=== PATIENT | male | born 1955 | race Native Hawaiian/Other Pacific Islander ===

== ENCOUNTER 2016-10-20 23:44 | Inpatient (IN) | payer BC, OTHER ==
[~2016-10-20] VITALS: Ht 172.7 cm; Wt 104.1 kg
[~2016-10-20 23:44] MED LIST: ADVA100A NEB; AMLO2.5T PO; ASPI81TA11 PO; CHOL50006 PO; LEVA0.3113 NEB; LEVO.05 PO; LEXA10TA PO; PROB500 PO; ROSU5 PO; TELM1TAB56 PO
[2016-10-20 23:51] VITALS: BP 156/90; PULSE 144; RESP 20
[2016-10-21] VITALS (18 sets, daily range): BP systolic 129–178; BP diastolic 60–96; PULSE 48–137; RESP 13–22; TEMP 98.2–98.5; O2SAT 95–99
[2016-10-21] MEDS ORDERED: MULT1CHW70 (00:13)
[2016-10-21] MEDS ORDERED: AMLO2.5T PO (00:13)
[2016-10-21] MEDS ORDERED: VITATAB29 (00:13)
[2016-10-21] MEDS ORDERED: ASPI81CH CHEW (00:13)
[2016-10-21] MEDS ORDERED: LEXA10TA PO (00:13)
[2016-10-21] MEDS ORDERED: CLAR10CA3 PO (00:13)
[2016-10-21] MEDS ORDERED: [UNRECOGNIZED DRUG - CODE] (00:13)
[2016-10-21] MEDS ORDERED: MONT10TA2 PO (00:13)
[2016-10-21] MEDS ORDERED: ROSU5 PO (00:13)
[2016-10-21] MEDS ORDERED: TELM1TAB56 PO (00:13)
--- NOTE | 2016-10-21 00:13 | PD ---
HPI Chief Complaint: Chest Pain Time Seen by Provider: 23:56 Travel History International Travel<30 days: No Contact w/Intl Traveler<30days: No Traveled to known affect area: No History of Present Illness HPI The patient is a 61-year-old male that has a history of intermittent atrial fibrillation. The last time he had atrial fibrillation was last January. He states he has been in atrial fibrillation for about an hour. It started about 11 PM this evening. The patient took an extra 325 mg aspirin when he felt the atrial fibrillation. He has been taking the rest of his medications correctly. He denies any chest pain or shortness of breath. 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 PFSH Past Medical History Asthma: Yes Atrial Fibrillation: Yes Cardiovascular Problems: Yes Diminished Hearing: No Hiatal Hernia: Yes Hypertension: Yes Musculoskeletal: Yes (LOWER BACK PAIN RECEIVES STEROIDAL SHOTS ) Reproductive: Yes (CPAP AT HOME AT NIGHT ) Respiratory: Yes (CPAP AT HOME AT NIGHT) Sleep Apnea: Yes Past Surgical History Other Surgery: Yes (RECTAL FISSURE) Social History Alcohol Use: No Tobacco Use: No Substance Use: No Allergies-Medications (Allergen,Severity, Reaction): Coded Allergies: Dairy (Verified Allergy, Severe, GERD, STOMACH PROBLEMS, 10/21/16) Naprosyn (Verified Allergy, Severe, STOMACH PROBLEMS, 10/21/16) Uncoded Allergies: CITRUS (Allergy, Severe, FOOD ALLERGY- ITCHING, 06/26/12) Reported Meds & Prescriptions Reported Meds & Active Scripts Active Reported Breo Ellipta Inh (Fluticasone/Vilanterol) 100-25 Mcg/Act Inh 1 Puff INH DAILY Use daily at the same time. Coenzyme Q10 1 Pow Pow Cap PO Ventolin Hfa 18 GM Inh (Albuterol Sulfate) 90 Mcg/Act Aer 1 Puff INH Q4H PRN [allergies shot] SQ WEEKLY Doxil (Doxorubicin HCl Liposome) 2 Mg/Ml Inj Multivitamin Adult (Multiple Vitamins W/ Minerals) 1 Chw Chw Lexapro (Escitalopram Oxalate) 10 Mg Tab 10 Mg PO DAILY Amlodipine (Amlodipine Besylate) 2.5 Mg Tab 2.5 Mg PO DAILY Micardis (Telmisartan) 80 Mg Tab 80 Mg PO DAILY Claritin (Loratadine) 10 Mg Cap 10 Mg PO DAILY Crestor (Rosuvastatin Calcium) 5 Mg Tab 2.5 Mg PO DAILY Vitamin A & D 16251-575 Unit (Vitamins A & D) 1 Tab Tab 1,000 Singulair (Montelukast Sodium) 10 Mg Tab 10 Mg PO HS Aspirin 81 Mg Chew 81 Mg CHEW DAILY Review of Systems Except as stated in HPI: all other systems reviewed are Neg Physical Exam Narrative GENERAL: The patient is alert, oriented 3 in no respiratory distress. His vital signs show pulse rate of 144, respirations 20 and blood pressure 156/90 but otherwise normal. SKIN: Focused skin assessment warm/dry. HEAD: Atraumatic. Normocephalic. EYES: Pupils equal and round. No scleral icterus. No injection or drainage. ENT: No nasal bleeding or discharge. Mucous membranes pink and moist. NECK: Trachea midline. No JVD. CARDIOVASCULAR: Atrial fibrillation with rapid ventricular response. No murmur appreciated. RESPIRATORY: No accessory muscle use. Clear to auscultation. Breath sounds equal bilaterally. GASTROINTESTINAL: Abdomen soft, non-tender, nondistended. Hepatic and splenic margins not palpable. MUSCULOSKELETAL: No obvious deformities. No clubbing. No cyanosis. No edema. NEUROLOGICAL: Awake and alert. No obvious cranial nerve deficits. Motor grossly within normal limits. Normal speech. PSYCHIATRIC: Appropriate mood and affect; insight and judgment normal. Data Data Last Documented VS Vital Signs Date Time Temp Pulse Resp B/P Pulse Ox O2 Delivery O2 Flow Rate FiO2 10/21/16 01:32 128 18 154/87 99 Room Air Orders Ecg Monitoring (10/21/16 00:02) Blood Pressure (10/21/16 00:02) Iv Access Insert/Monitor (10/21/16 00:02) Oximetry (10/21/16 00:02) Vital Signs (10/21/16 00:02) Diltiazem Inj (Cardizem Inj) (10/21/16 00:15) Sodium Chloride 0.9% Flush (Ns Flush) (10/21/16 00:15) Diltiazem Inj (Cardizem Inj) (10/21/16 00:15) Electrocardiogram (10/21/16 00:07) B-Type Natriuretic Peptide (10/21/16 00:07) Complete Blood Count With Diff (10/21/16 00:07) Comprehensive Metabolic Panel (10/21/16 00:07) Magnesium (Mg) (10/21/16 00:07) Prothrombin Time / Inr (Pt) (10/21/16 00:07) Act Partial Throm Time (Ptt) (10/21/16 00:07) Troponin I (10/21/16 00:07) Oxygen Administration (10/21/16 00:07) Sodium Chloride 0.9% Flush (Ns Flush) (10/21/16 00:15) Urinalysis - C+S If Indicated (10/21/16 01:02) Sodium Chlor 0.9% 1000 Ml Inj (Ns 1000 M (10/21/16 01:45) Diltiazem Inj (Cardizem Inj) (10/21/16 01:45) Labs Laboratory Tests Test 10/21/16 10/21/16 00:00 01:07 White Blood Count 10.3 TH/MM3 Red Blood Count 5.50 MIL/MM3 Hemoglobin 15.0 GM/DL Hematocrit 45.9 % Mean Corpuscular Volume 83.5 FL Mean Corpuscular Hemoglobin 27.4 PG Mean Corpuscular Hemoglobin 32.8 % Concent Red Cell Distribution Width 13.1 % Platelet Count 333 TH/MM3 Mean Platelet Volume 9.6 FL Neutrophils (%) (Auto) 48.9 % Lymphocytes (%) (Auto) 38.4 % Monocytes (%) (Auto) 9.2 % Eosinophils (%) (Auto) 2.7 % Basophils (%) (Auto) 0.8 % Neutrophils # (Auto) 5.1 TH/MM3 Lymphocytes # (Auto) 3.9 TH/MM3 Monocytes # (Auto) 0.9 TH/MM3 Eosinophils # (Auto) 0.3 TH/MM3 Basophils # (Auto) 0.1 TH/MM3 CBC Comment DIFF FINAL Differential Comment Prothrombin Time 11.4 SEC Prothromb Time International 1.0 RATIO Ratio Activated Partial 27.8 SEC Thromboplast Time Sodium Level 142 MEQ/L Potassium Level 4.0 MEQ/L Chloride Level 105 MEQ/L Carbon Dioxide Level 27.3 MEQ/L Anion Gap 10 MEQ/L Blood Urea Nitrogen 22 MG/DL Creatinine 1.10 MG/DL Estimat Glomerular Filtration 68 ML/MIN Rate Random Glucose 131 MG/DL Calcium Level 9.3 MG/DL Magnesium Level 1.8 MG/DL Total Bilirubin 0.3 MG/DL Aspartate Amino Transf 23 U/L (AST/SGOT) Alanine Aminotransferase 48 U/L (ALT/SGPT) Alkaline Phosphatase 93 U/L Troponin I LESS THAN 0.02 NG/ML B-Type Natriuretic Peptide 26 PG/ML Total Protein 8.0 GM/DL Albumin 4.0 GM/DL Urine Color STRAW Urine Turbidity CLEAR Urine pH 5.5 Urine Specific [place] 1.003 Urine Protein NEG mg/dL Urine Glucose (UA) NEG mg/dL Urine Ketones NEG mg/dL Urine Occult Blood NEG Urine Nitrite NEG Urine Bilirubin NEG Urine Leukocyte Esterase NEG Urine RBC 0-2 /hpf Urine WBC 0-2 /hpf Urine Squamous Epithelial 0-5 /hpf Cells Urine Bacteria NONE /hpf Microscopic Urinalysis Comment CULT NOT INDICATED MDM Medical Decision Making Medical Screen Exam Complete: Yes Emergency Medical Condition: Yes Medical Record Reviewed: Yes Differential Diagnosis Atrial fibrillation with rapid ventricular response, electrolyte disorder, acute coronary syndrome, renal insufficiency, dehydration Narrative Course The patient has atrial fibrillation with rapid ventricular response. He was given 20 of Cardizem and put on a Cardizem drip. It is now 0150 and the patient is on a 15 mg per hour drip and has been given a total of 30 Cardizem bolus. He still has not converted into sinus rhythm. I discussed the patient with Dr. Hughes, the patient will be admitted to her. Physician Communication Physician Communication I discussed the patient with Dr. Hughes. Diagnosis Primary Impression: Atrial fibrillation with rapid ventricular response Admitting Information Admitting Physician Requests: Admit Reyes Mcdonald MD October 21, 2016 00:13
[2016-10-21] MEDS ORDERED: DILTIAZEM INJ 125 MG in SODIUM CHLORIDE 0.9% INJ 100 ML IV SCH (00:15)
[2016-10-21] MEDS ORDERED: SODIUM CHLORIDE 0.9% FLUSH 10 ML FLUSH IVF PRN ×2 (00:15)
[2016-10-21] MEDS ORDERED: DILTIAZEM HCL 25 MG/5 ML VIAL IV ONE ×2 (00:15→01:45)
[2016-10-21 00:26] LABS: AUTOMATED NEUTROPHIL # 5.1 TH/MM3 (1.8-7.7); BASOPHIL # 0.1 TH/MM3 (0-0.2); BASOPHIL % 0.8 % (0.0-2.0); EOSINOPHIL # 0.3 TH/MM3 (0-0.4); EOSINOPHIL % 2.7 % (0.0-4.0); HEMATOCRIT 45.9 % (39.0-51.0); LYMPH % 38.4 % (9.0-44.0); LYMPHOCYTE # 3.9 TH/MM3 (1.0-4.8); MEAN CELL VOLUME 83.5 FL (80.0-100.0); MEAN CORPUSCULAR HEMOGLOBIN 27.4 PG (27.0-34.0); MEAN CORPUSCULAR HGB CONC 32.8 % (32.0-36.0); MONO % 9.2 % (0.0-8.0); NEUT % 48.9 % (16.0-70.0); PLATELET COUNT 333 TH/MM3 (150-450); RED CELL DISTRIBUTION WIDTH 13.1 % (11.6-17.2); WHITE BLOOD COUNT 10.3 TH/MM3 (4.0-11.0)
[2016-10-21 00:30] LABS: HEMO FLAGS DIFF FINAL
[2016-10-21 00:34] LABS: CHLORIDE 105 MEQ/L (98-107); SODIUM (NA) 142 MEQ/L (136-145)
[2016-10-21 00:37] LABS: ANION GAP 10 MEQ/L (5-15); BICARBONATE 27.3 MEQ/L (21.0-32.0); MAGNESIUM 1.8 MG/DL (1.5-2.5)
[2016-10-21 00:38] LABS: BLOOD UREA NITROGEN 22 MG/DL (7-18)
[2016-10-21 00:40] LABS: APTT (PATIENT) 27.8 SEC (24.3-30.1); PROTHROMBIN TIME - PATIENT 11.4 SEC (9.8-11.6)
[2016-10-21 00:41] LABS: ALT (GPT) 48 U/L (12-78); AST (GOT) 23 U/L (15-37); GLOMERULAR FILTRATION RATE 68 ML/MIN (>89)
[2016-10-21 00:42] LABS: TOTAL BILIRUBIN ADULT 0.3 MG/DL (0.2-1.0)
[2016-10-21 00:43] LABS: ALKALINE PHOSPHATASE 93 U/L (45-117)
[2016-10-21 01:18] LABS: BLOOD, URINE NEG (NEG); GLUCOSE,URINE NEG (NEG); KETONE, URINE NEG (NEG); NITRITE,URINE NEG (NEG); PH, URINE 5.5 (5.0-8.5)
[2016-10-21] MEDS ORDERED: VENTAER INH (01:19)
[2016-10-21] MEDS ORDERED: [UNRECOGNIZED DRUG - REMARK] SQ (01:19)
[2016-10-21 01:21] LABS: URINE COLOR STRAW (YELLW/STRAW)
[2016-10-21] MEDS ORDERED: COENPOW21 PO (01:21)
[2016-10-21 01:23] LABS: COMMENT (UR) CULT NOT INDICATED; CULTURE IF INDICATED CULT NOT INDICATED; RBC, URINE 0-2 /hpf (0-3); SQUAMOUS EPITHELIAL CELL URINE 0-5 /hpf (0-5); WBC, URINE 0-2 /hpf (0-5)
[2016-10-21] MEDS ORDERED: FLUT1INH INH (01:23)
[2016-10-21] MEDS ORDERED: SODIUM CHLOR 0.9% 1000 ML INJ 1,000 ML IV SCH (01:45)
[2016-10-21] MEDS ORDERED: NALOXONE HCL 0.4 MG/ML AMP IV PRN (02:00)
[2016-10-21] MEDS ORDERED: SODIUM CHLORIDE 0.9% FLUSH 10 ML FLUSH IV FLUSH PRN (02:00)
[2016-10-21] MEDS ORDERED: ALUMINUM/MAGNESIUM/SIMETH 30 ML CUP PO ONE (02:30)
[2016-10-21] MEDS ORDERED: PANTOPRAZOLE SODIUM 40 MG VIAL IVP ONE (02:30)
[2016-10-21] MEDS ORDERED: FAMOTIDINE 20 MG/2 ML VIAL IV PUSH ONE (02:30)
[2016-10-21] MEDS ORDERED: SODIUM CHLORIDE 0.9% FLUSH 10 ML FLUSH IV FLUSH SCH (09:00)
[2016-10-21] MEDS ORDERED: ALBUTEROL SULFATE 90 MCG/ACT HFA 8 GM INHALER INH PRN (09:15)
[2016-10-21] MEDS ORDERED: CALCIUM CARBONATE 500 MG CHEWABLE TAB CHEW PRN (09:15)
[2016-10-21] MEDS ORDERED: DOCUSATE SODIUM 50 MG/SENNA 8.6 MG TAB PO PRN (09:15)
[2016-10-21] MEDS ORDERED: ONDANSETRON HCL 4 MG/2 ML VIAL IV PRN (09:15)
[2016-10-21] MEDS ORDERED: ACETAMINOPHEN 325 MG TAB PO PRN (09:15)
[2016-10-21] MEDS ORDERED: LEVO50TA4 PO (09:32)
[2016-10-21] MEDS ORDERED: CARD240C6 PO (11:00)
--- NOTE | 2016-10-21 11:00 | HHI.DCPOC ---
Discharge Care Plan Diagnosis: (1) Atrial fibrillation with rapid ventricular response Your Health Problems Are: Difficulty with ADL Exercise Tolerance Goals to Promote Your Health * To prevent worsening of your condition and complications * To maintain your health at the optimal level Directions to Meet Your Goals Take your medications as prescribed Follow your dietary instruction Follow activity as directed Keep your appointments as scheduled Take your immunizations and boosters as scheduled If your symptoms worsen call your PCP, if no PCP go to Urgent Care Center or Emergency Room Smoking is Dangerous to Your Health. Avoid second hand smoke Call the 24-hour hour crisis hotline for domestic abuse at Julio Gross MD October 21, 2016 11:00
--- NOTE | 2016-10-21 11:25 | HHI.HP ---
cc: Mariam Sutherland MD [facility] Service [facility] Primary Care Physician Mariam Sutherland MD Admission Diagnosis atrial fibrillation with rapid ventricular response Diagnoses: (1) Atrial fibrillation with rapid ventricular response Diagnosis: Principal (2) Elevated troponin Diagnosis: Principal (3) HTN (hypertension) Diagnosis: Principal Chief Complaint: heart racing, tingling Travel History International Travel<30 Days: No Contact w/Intl Traveler <30 Da: No Traveled to Known Affected Are: No History of Present Illness Dr. Mcdonald is a 61-year-old male with history of atrial fibrillation, hypertension, sleep apnea presents with complaint of his heart racing and tingling. The patient states that yesterday he had a lot of burping and also had tea in the evening which he does not usually do. He states he took his GERD medication late. He states he was lying down and then started experiencing tingling. He states his blood pressure felt elevated and his heart was racing. States he took a baby aspirin in the morning and then took full aspirin along with his Micardis and Amlodipine. He states [facility] came to the house and his blood pressure was 180/90. He denies any diaphoresis , chest pain, shortness of breath. He states he's also had a lot of back pain for the past 3-4 days, but he has chronic back pain. Gets leg swelling from amlodipine. He states Dr. Carrion put him on spironolactone for 4-5 days, but he had too many adverse effects. Patient states he had A. fib in 2013 when his C Pap wasn't working properly. Patient has had multiple stress tests. His last had one was in May 2015. He states he had heart catheterization in 2005 which was clean. He does state he gets false positive ST changes every time he has a stress test. 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 Review of Systems Except as stated in HPI: all other systems reviewed are Neg Past Family Social History Past Medical History Atrial fibrillation Hypertension Sleep apnea, uses CPAP chronic back pain Past Surgical History None Reported Medications Levothyroxine (Levothyroxine Sodium) 50 Mcg Tab 50 Mcg PO DAILY Breo Ellipta Inh (Fluticasone/Vilanterol) 100-25 Mcg/Act Inh 1 Puff INH DAILY Use daily at the same time. Coenzyme Q10 1 Pow Pow Cap PO Ventolin Hfa 18 GM Inh (Albuterol Sulfate) 90 Mcg/Act Aer 1 Puff INH Q4H PRN [allergies shot] SQ WEEKLY Multivitamin Adult (Multiple Vitamins W/ Minerals) 1 Chw Chw Lexapro (Escitalopram Oxalate) 10 Mg Tab 10 Mg PO DAILY Amlodipine (Amlodipine Besylate) 2.5 Mg Tab 2.5 Mg PO DAILY Micardis (Telmisartan) 80 Mg Tab 80 Mg PO DAILY Claritin (Loratadine) 10 Mg Cap 10 Mg PO DAILY Crestor (Rosuvastatin Calcium) 5 Mg Tab 2.5 Mg PO DAILY Vitamin A & D 44652-117 Unit (Vitamins A & D) 1 Tab Tab 1,000 Singulair (Montelukast Sodium) 10 Mg Tab 10 Mg PO HS Aspirin 81 Mg Chew 81 Mg CHEW DAILY Allergies: Coded Allergies: Dairy (Verified Allergy, Severe, GERD, STOMACH PROBLEMS, 10/21/16) Naprosyn (Verified Allergy, Severe, STOMACH PROBLEMS, 10/21/16) Uncoded Allergies: CITRUS (Allergy, Severe, FOOD ALLERGY- ITCHING, 06/26/12) Family History Father: [place] in 2005, diabetes, hypertension. Mother: Hypertension Social History Denies any history of tobacco use, alcohol use, or illicit drug use. Physical Exam Vital Signs Vital Signs Date Time Temp Pulse Resp B/P Pulse Ox O2 Delivery O2 Flow Rate FiO2 10/21/16 06:00 68 10/21/16 04:00 98.2 90 15 132/75 97 10/21/16 04:00 90 10/21/16 03:37 103 18 143/71 97 Room Air 10/21/16 03:01 Room Air 10/21/16 02:59 120 18 178/77 97 Room Air 10/21/16 02:33 101 18 163/67 96 Room Air 10/21/16 01:54 98 19 140/73 98 Room Air 10/21/16 01:32 128 18 154/87 99 Room Air 10/21/16 01:11 137 18 149/82 98 Room Air 10/21/16 00:47 109 19 157/81 95 Room Air 10/21/16 00:36 Room Air 10/21/16 00:33 96 18 145/75 98 Room Air 10/21/16 00:29 79 18 160/96 96 Room Air 10/20/16 23:51 144 20 156/90 Physical Exam GENERAL: This is a pleasant well-nourished, well-developed patient, in no apparent distress. SKIN: No rashes, ecchymoses or lesions. Warm and dry. HEAD: Atraumatic. Normocephalic. EYES: No scleral icterus. No injection or drainage. NECK: Trachea midline. CARDIOVASCULAR: Bradycardic rate at 54-58 regular rhythm without murmurs, gallops, or rubs. RESPIRATORY: Clear to auscultation. Breath sounds equal bilaterally. No wheezes , rales, or rhonchi. GASTROINTESTINAL: Normoactive bowel sounds. Abdomen soft, non-tender, nondistended. MUSCULOSKELETAL: No lower extremity edema. NEUROLOGICAL: Awake and alert. Motor grossly within normal limits. Normal speech. Laboratory Laboratory Tests Test 10/21/16 10/21/16 10/21/16 00:00 01:07 05:00 White Blood Count 10.3 Red Blood Count 5.50 Hemoglobin 15.0 Hematocrit 45.9 Mean Corpuscular Volume 83.5 Mean Corpuscular Hemoglobin 27.4 Mean Corpuscular Hemoglobin 32.8 Concent Red Cell Distribution Width 13.1 Platelet Count 333 Mean Platelet Volume 9.6 Neutrophils (%) (Auto) 48.9 Lymphocytes (%) (Auto) 38.4 Monocytes (%) (Auto) 9.2 Eosinophils (%) (Auto) 2.7 Basophils (%) (Auto) 0.8 Neutrophils # (Auto) 5.1 Lymphocytes # (Auto) 3.9 Monocytes # (Auto) 0.9 Eosinophils # (Auto) 0.3 Basophils # (Auto) 0.1 CBC Comment DIFF FINAL Differential Comment Prothrombin Time 11.4 Prothromb Time International 1.0 Ratio Activated Partial 27.8 Thromboplast Time Sodium Level 142 Potassium Level 4.0 Chloride Level 105 Carbon Dioxide Level 27.3 Anion Gap 10 Blood Urea Nitrogen 22 Creatinine 1.10 Estimat Glomerular Filtration 68 Rate Random Glucose 131 Calcium Level 9.3 Magnesium Level 1.8 Total Bilirubin 0.3 Aspartate Amino Transf 23 (AST/SGOT) Alanine Aminotransferase 48 (ALT/SGPT) Alkaline Phosphatase 93 Troponin I LESS THAN 0.02 0.09 B-Type Natriuretic Peptide 26 Total Protein 8.0 Albumin 4.0 Urine Color STRAW Urine Turbidity CLEAR Urine pH 5.5 Urine Specific [place] 1.003 Urine Protein NEG Urine Glucose (UA) NEG Urine Ketones NEG Urine Occult Blood NEG Urine Nitrite NEG Urine Bilirubin NEG Urine Leukocyte Esterase NEG Urine RBC 0-2 Urine WBC 0-2 Urine Squamous Epithelial 0-5 Cells Urine Bacteria NONE Microscopic Urinalysis Comment CULT NOT INDICATED Total Creatine Kinase 185 Thyroid Stimulating Hormone 2.320 3rd Gen Result Diagram: 10/21/16 0000 10/21/16 0000 Assessment and Plan Problem List: (1) Atrial fibrillation with rapid ventricular response ICD Code: I48.91 Status: Acute (2) Elevated troponin ICD Code: R74.8 Status: Acute (3) HTN (hypertension) ICD Code: I10 Status: Chronic Assessment and Plan 61-year-old male with: A. fib RVR: EKGs personally interpreted. EKG #1 with A.Fib RVR [address]-T changes. EKG #2 with A. fib rate 70, but no ischemic changes noted. Patient was administered 30 mg total bolus of IV Cardizem in the ED and subsequently placed on a Cardizem drip. The patient has since converted to sinus rhythm. -Spoke with Dr. Recio. Will start patient on by mouth Cardizem CD 240 mg daily and stop the drip in 1 hour. -CHADs2 score of 1. Continue baby aspirin daily. -Patient bradycardic, but this is patient's norm. -Patient to follow up with Dr. Recio in the am. Elevated troponin: 0.02-->0.09-->0.08. Elevation likely attributed to RVR. No report of chest pain. Patient had negative nuclear stress test May 2015. Trending downward. HTN: -Discontinue Amlodipine -Continue Losartan HLD: Continue statin. DVT prevention: SCDs. Discharge disposition: Home in stable condition. Activity: Regular Diet: Heart healthy. Patient states he already eats a low-salt diet. Medications: Per med rec; start by mouth Cardizem. Stop amlodipine. Follow-up: Dr. Recio tomorrow morning, PCP. Written by Lou Soto PA-C acting as scribe for Dr. Gross on 10/21/16 at 1025. This note was transcribed by al Soto PA-C. I, Dr. Julio Gross personally performed the history, physical exam, and medical decision making; and confirmed the accuracy of the information in the transcribed note. Authenticated by Dr. Julio Gross on 10/21/16 at 15:29. Discussed Condition With Dr. Recio, patient Physician Certification 2 Midnight Certification Type: Admission for Inpatient Services Order for Inpatient Services The services are ordered in accordance with Medicare regulations or non- Medicare payer requirements, as applicable. In the case of services not specified as inpatient-only, they are appropriately provided as inpatient services in accordance with the 2-midnight benchmark. Estimated LOS (days): 2 days is the estimated time the patient will need to remain in the hospital, assuming treatment plan goals are met and no additional complications. Post-Hospital Plan: Lou Randle October 21, 2016 11:24 Julio Gross MD October 21, 2016 15:30
[2016-10-21] MEDS ORDERED: DILTIAZEM-CD 240 MG CAP ER PO SCH (12:00)
--- NOTE | 2016-10-21 17:42 | EKG ---
Date Performed: 10/20/2016 Time Performed: 23:48:46 PTAGE: 61 years EKG: Atrial fibrillation with rapid ventricular response Extensive ST-T changes may be due to my ocardial ischemia Abnormal ECG Compared to prior study of 02/09/2015, atrial fibrillation with rapid response is now present. Nonspecific ST-T changes are now present. PREVIOUS TRACING : 02/09/2015 17.52 DOCTOR: Enrique Eduardo Interpretating Date/Time 10/21/2016 17:42:04
--- NOTE | 2016-10-21 17:42 | EKG ---
Date Performed: 10/21/2016 Time Performed: 05:44:06 PTAGE: 61 years EKG: Atrial fibrillation Inferior ST-T changes are nonspecific Abnormal ECG Compared to PREVIOUS TRACING , the rate has slowed. Nonspecific ST-segment changes have resolved. PRE VIOUS TRACIN10/20/2016 23.48 DOCTOR: Enrique Eduardo Interpretating Date/Time 10/21/2016 17:42:36
[2016-10-21] MEDS ORDERED: LOSARTAN 50 MG TAB PO SCH (21:00)
[2016-10-21] MEDS ORDERED: MONTELUKAST SODIUM 10 MG TAB PO SCH (21:00)
[2016-10-22] MEDS ORDERED: LEVOTHYROXINE SODIUM 50 MCG TAB PO SCH (06:00)
[2016-10-22] MEDS ORDERED: TELMISARTAN 80 MG PO SCH (09:00)
[2016-10-22] MEDS ORDERED: PANTOPRAZOLE SOD 40 MG DELAYED RELEASE TAB PO SCH (09:00)
[2016-10-22] MEDS ORDERED: ATORVASTATIN 10 MG TAB PO SCH (09:00)
[2016-10-22] MEDS ORDERED: ESCITALOPRAM OXALATE 10 MG TAB PO SCH (09:00)
[2016-10-22] MEDS ORDERED: FLUTICASONE 100 MCG/VILANTEROL 25 MCG INHALER INH SCH (09:00)
[2016-10-22] MEDS ORDERED: ASPIRIN 81 MG CHEW TAB CHEW SCH (09:00)
[2016-10-22] MEDS ORDERED: LORATADINE 10 MG TAB PO SCH (09:00)
--- NOTE | 2016-10-22 15:47 | EKG ---
Date Performed: 10/21/2016 Time Performed: 12:33:46 PTAGE: 61 years EKG: Sinus bradycardia Normal ECG except for rate PREVIOUS TRACING : 10/21/2016 10.39 DOCTOR: Ethan Mcgarry Interpretating Date/Time 10/22/2016 15:38:42
--- NOTE | 2016-10-22 15:50 | EKG ---
Date Performed: 10/21/2016 Time Performed: 10:39:02 PTAGE: 61 years EKG: Sinus rhythm WITH FIRST DEGREE AV BLOCK WITH MARKED RHYTHM IRREGULARITY, POSSIBLE NON-CONDUCTED PAC, SA BLOCK, AV BLOCK, OR SINUS PAUSE NONSPECIFIC T-WAVE ABNORMALITY ABNORMAL ECG PREVIOUS TRACING : 10/21/2016 05.44 DOCTOR: Ethan Mcgarry Interpretating Date/Time 10/22/2016 15:41:43
== END 2016-10-21 15:45 | disposition home or self-care (01) | DRG 310 ==
LOC: PHED 23:44 → PHEDA 10-21 01:55 → PHICU 10-21 03:50
PROVIDERS: ADMIT Internal Medicine; ATTEND Internal Medicine
DX: I48.91 Unspecified atrial fibrillation (principal); I10 Essential (primary) hypertension; J45.909 Unspecified asthma, uncomplicated; M54.5 Low back pain; G47.33 Obstructive sleep apnea (adult) (pediatric); K21.9 Gastro-esophageal reflux disease without esophagitis; G89.29 Other chronic pain; E78.5 Hyperlipidemia, unspecified
CPT/HCPCS: 80053; 81001; 82550; 83735; 83880; 84443; 84484; 85025; 85610; 85730; 93005; 96365; 96376; C9113; J7030

== ENCOUNTER → 2017-05-25 | Outpatient (CLI) | payer BC ==
[~2017-05-25] VITALS: Ht 172.7 cm; Wt 106.4 kg
[~2017-05-25] MED LIST changes: -ADVA100A NEB; -AMLO2.5T PO; +ASPI-516 CHEW; -ASPI81TA11 PO; +BENZOCAINE 20% ORAL SPR 60 ML CAN OROPHARYNG ONE; +CARD240C6 PO; -CHOL50006 PO; +CLAR10CA3 PO; +COENPOW21 PO; +FLUT1INH INH; -LEVA0.3113 NEB; -LEVO.05 PO; +LEVO50TA4 PO; +LIDOCAINE HCL 2% 100 MG/5 ML SYRINGE OTHER ONE; +MONT10TA2 PO; +MULT1CHW70; -PROB500 PO; +VENTAER INH; +VITATAB29; +[UNRECOGNIZED DRUG - REMARK] SQ
[2017-05-25 08:05] VITALS: BP 148/72; PULSE 68; RESP 16; TEMP 98.1; O2SAT 99
== END ==
LOC: HSDC 06:59
DX: K21.9 Gastro-esophageal reflux disease without esophagitis (principal)
CPT/HCPCS: 91010